=== PATIENT | male | born 1950 | race Two or more races ===

== ENCOUNTER 2020-01-16 06:12 | Day surgery (SDC) | payer MEDICARE ==
[2020-01-16] MEDS ORDERED: SODIUM CHLORIDE 0.9% 1,000 ML IV SCH (07:00)
[2020-01-16 07:45] LABS: BASOPHILS # (AUTO) 0.02 x10^3/uL (0-0.1); BASOPHILS % (AUTO) 0 % (0-1); EOSINOPHILS # (AUTO) 0.14 x10^3/uL (0-0.4); EOSINOPHILS % (AUTO) 2 % (1-7); LYMPHOCYTES # (AUTO) 3.66 x10^3/uL (1-3.4); LYMPHOCYTES % (AUTO) 44 % (22-44); MD NO; MEAN CORPUSCULAR HEMOGLOBIN 27.2 pg (27.5-34.5); MEAN CORPUSCULAR HGB CONC 33.1 g/dL (33.2-36.2); MEAN CORPUSCULAR VOLUME 82.1 fL (81-97); MEAN PLATELET VOLUME 8.2 fL (7.4-10.4); MONOCYTES # (AUTO) 0.79 x10^3/uL (0.2-0.8); MONOCYTES % (AUTO) 9 % (2-9); NEUTROPHILS # (AUTO) 3.79 x10^3/uL (1.8-6.8); NEUTROPHILS % (AUTO) 45 % (42-75); PLATELET COUNT 216 x10^3/uL (130-400); RED BLOOD COUNT 4.98 x10^6/uL (4.38-5.82); RED CELL DISTRIBUTION WIDTH 14.7 % (9.4-14.8)
[2020-01-16] MEDS ORDERED: FENTANYL PF 100 MCG/2ML ONE (08:10)
[2020-01-16] MEDS ORDERED: FLUMAZENIL 0.1 MG/1 ML, 5ML ONE (08:11)
[2020-01-16] MEDS ORDERED: NALOXONE 1 MG/ML, 2ML ONE (08:11)
[2020-01-16] MEDS ORDERED: MIDAZOLAM 1 MG/ML, 5ML ONE (08:11)
== END 2020-01-16 11:20 | disposition home or self-care (01) ==
LOC: OUT 06:12
PROVIDERS: ATTEND Specialist
DX: C90.30 Solitary plasmacytoma not having achieved remission (principal); I10 Essential (primary) hypertension; I25.2 Old myocardial infarction; Z79.899 Other long term (current) drug therapy; Z88.0 Allergy status to penicillin; Z90.49 Acquired absence of other specified parts of digestive tract; Z95.5 Presence of coronary angioplasty implant and graft
CPT/HCPCS: 36415; 38222; 77012; 85025; 85060; 85097; 88237; 88264; 88280; 88305; 88311; 88313; 99156; 99157; J2250; J3010; J7030; J2310

== ENCOUNTER → 2020-05-23 | Outpatient (CLI) | payer MEDICARE ==
[~2020-05-23] MED LIST: FINA5TAB4 PO; Metamucil PO; OMEP-110 PO; TAMS-11 PO; acetaminophen PO
== END | disposition home or self-care (01) ==
LOC: STAR 08:17
PROVIDERS: ATTEND Internal Medicine
DX: Z01.812 Encounter for preprocedural laboratory examination (principal); Z20.828 Contact with and (suspected) exposure to other viral communicable diseases; R94.31 Abnormal electrocardiogram [ECG] [EKG]
CPT/HCPCS: 36415; 87635; 93005

== ENCOUNTER 2020-05-27 09:18 | Day surgery (SDC) | payer MEDICARE ==
[~2020-05-27] VITALS: Ht 170.2 cm; Wt 89.5 kg
[2020-05-27] MEDS ORDERED: LACTATED RINGERS 1,000 ML IV SCH (09:48)
[2020-05-27 09:50] VITALS: BP 160/90
[2020-05-27] MEDS ORDERED: CHLORHEXIDINE 15 ML UDC MM ONE (10:00)
[2020-05-27] MEDS ORDERED: MIDAZOLAM 1 MG/ML, 2ML ONE (10:18)
[2020-05-27] MEDS ORDERED: FENTANYL PF 100 MCG/2ML ONE ×2 (10:18→12:12)
[2020-05-27] MEDS ORDERED: FENTANYL PF 100 MCG/2ML IV PRN (10:30)
[2020-05-27] MEDS ORDERED: MEPERIDINE/PF 25MG/0.5ML IVPush PRN (10:30)
[2020-05-27] MEDS ORDERED: HYDROmorphone 1 MG/ML, 1ML INJ IVPush PRN (10:30)
[2020-05-27] MEDS ORDERED: PROMETHAZINE 25 MG/ML, 1ML IVPush PRN (10:30)
[2020-05-27] MEDS ORDERED: OMNIPAQUE 350 MG/ML, 50 ML BOTTLE ONE (11:00)
[2020-05-27] MEDS ORDERED: SUCCINYLCHOLINE 20 MG/ML, 10ML ONE (11:08)
[2020-05-27] MEDS ORDERED: DEXAMETHASONE 4 MG/ML, 1ML ONE (11:08)
[2020-05-27] MEDS ORDERED: ROCURONIUM 10 MG/ML,10ML ONE (11:08)
[2020-05-27] MEDS ORDERED: EPHEDRINE 50 MG/ML, 1ML ONE (11:08)
[2020-05-27] MEDS ORDERED: SUGAMMADEX 200 MG/2 ML IVPush ONE (11:08)
[2020-05-27] MEDS ORDERED: ONDANSETRON 2MG/ML, 2ML ONE (11:08)
[2020-05-27] MEDS ORDERED: PROPOFOL 10 MG/ML, 20ML ONE (11:08)
[2020-05-27] MEDS ORDERED: INDOMETHACIN 50 MG SUPP.RECT ONE (12:12)
[2020-05-27] MEDS ORDERED: INDOMETHACIN 50 MG SUPP.RECT PR ONE (12:30)
[2020-05-29] MEDS ORDERED: ACET325T26 PO (16:15)
[2020-05-29] MEDS ORDERED: DICY10AM2 PO (16:15)
== END 2020-05-27 14:05 | disposition home or self-care (01) ==
LOC: OUT 09:18
PROVIDERS: ATTEND Internal Medicine
DX: K31.89 Other diseases of stomach and duodenum (principal); C49.A3 Gastrointestinal stromal tumor of small intestine; C90.30 Solitary plasmacytoma not having achieved remission; K21.9 Gastro-esophageal reflux disease without esophagitis; N40.0 Benign prostatic hyperplasia without lower urinary tract symptoms; Z80.0 Family history of malignant neoplasm of digestive organs
CPT/HCPCS: 43274; 74328; C1769; C1894; C2625; J0330; J1100; J2250; J2405; J2704; J3010; J7120; Q9967

== ENCOUNTER → 2020-08-13 | Outpatient (CLI) | payer MEDICARE ==
[~2020-08-13] MED LIST changes: +ACET-1600 PO; +ACET325T26 PO; +DICY10AM2 PO; +MULT-746 PO
== END | disposition home or self-care (01) ==
LOC: STAR 13:15
PROVIDERS: ATTEND Internal Medicine
DX: Z20.828 Contact with and (suspected) exposure to other viral communicable diseases (principal); K22.8 Other specified diseases of esophagus
CPT/HCPCS: 87635

== ENCOUNTER 2020-08-19 10:07 | Day surgery (SDC) | payer MEDICARE ==
[~2020-08-19] VITALS: Ht 170.2 cm; Wt 85.0 kg
[2020-08-19] MEDS ORDERED: CHLORHEXIDINE 15 ML UDC ONE (10:39)
[2020-08-19 10:45] VITALS: BP 149/90
[2020-08-19] MEDS ORDERED: FENTANYL PF 100 MCG/2ML IV PRN (11:00)
[2020-08-19] MEDS ORDERED: HYDROmorphone 1 MG/ML, 1ML INJ IVPush PRN (11:00)
[2020-08-19] MEDS ORDERED: KETOROLAC 30 MG/1 ML IVPush PRN (11:00)
[2020-08-19] MEDS ORDERED: PROMETHAZINE 25 MG/ML, 1ML IVPush PRN (11:00)
[2020-08-19] MEDS ORDERED: OXYcodone 5 MG/5 ML ORAL.SOL UDC PO PRN (11:00)
[2020-08-19] MEDS ORDERED: CHLORHEXIDINE 15 ML UDC MM ONE (11:00)
[2020-08-19] MEDS ORDERED: MEPERIDINE/PF 25MG/0.5ML IVPush PRN (11:00)
[2020-08-19] MEDS ORDERED: HYDROcodone/APAP 7.5-325MG/15ML UDC PO PRN (11:00)
[2020-08-19] MEDS ORDERED: LACTATED RINGERS 1,000 ML IV SCH (11:00)
[2020-08-19] MEDS ORDERED: FENTANYL PF 100 MCG/2ML ONE ×2 (11:42→13:04)
[2020-08-19] MEDS ORDERED: MIDAZOLAM 1 MG/ML, 2ML ONE (11:42)
[2020-08-19] MEDS ORDERED: ROCURONIUM 10 MG/ML,10ML ONE (11:57)
[2020-08-19] MEDS ORDERED: SUCCINYLCHOLINE 20 MG/ML, 10ML ONE (11:57)
[2020-08-19] MEDS ORDERED: OMNIPAQUE 350 MG/ML, 150 ML BOTTLE ONE (12:48)
[2020-08-19] MEDS ORDERED: PROPOFOL 50 ML ONE (13:25)
[2020-08-19] MEDS ORDERED: ACETAMINOPHEN 325 MG TABLET ONE ×2 (14:37)
[2020-08-19] MEDS ORDERED: ACETAMINOPHEN 325 MG TABLET PO ONE (17:00)
== END 2020-08-19 15:05 | disposition home or self-care (01) ==
LOC: OUT 10:07
PROVIDERS: ATTEND Internal Medicine Geriatric Medicine
DX: C90.30 Solitary plasmacytoma not having achieved remission (principal); Z79.899 Other long term (current) drug therapy; Z88.0 Allergy status to penicillin
CPT/HCPCS: 43274; 74328; C1769; C1894; C2625; J0330; J2250; J2704; J3010; J7120; Q9967